=== PATIENT | male | born 1955 | race African-American/Black ===

== ENCOUNTER 2018-05-11 18:54 | Inpatient (IN) | payer MEDICAID, OTHER ==
[~2018-05-11] VITALS: Ht 186.9 cm; Wt 133.8 kg
[~2018-05-11 18:54] MED LIST: ALBUTEROL; MDI; T3
[2018-05-11] MEDS ORDERED: SODIUM CHLORIDE 0.9% 1,000 ML IV ONE ×3 (19:30→20:30)
[2018-05-11] MEDS ORDERED: NALOXONE HCL 0.4 MG/ML 1ML VIAL IV PRN (19:30)
[2018-05-11] MEDS ORDERED: HALOPERIDOL LACTATE 5MG/ML VIAL IM ONE (19:45)
[2018-05-11 19:50] LABS: CHLORIDE 106 mEq/L (98-107)
[2018-05-11 19:51] LABS: HEMATOCRIT. 46.7 % (42.0-52.0); HEMOGLOBIN. 14.9 g/dL (14.0-18.0); MEAN CORPUSCULAR HEMOGLOBIN 31.9 pg (28.0-32.0); MEAN PLATELET VOLUME 9.9 fl (7.4-10.4); PLATELET 262 x1000/uL (130-400); RED BLOOD CELL COUNT 4.67 mill/uL (4.7-6.1); RED CELL DISTRIBUTION WIDTH 14.8 % (11.6-14.6)
[2018-05-11] MEDS ORDERED: LACTATED RINGERS 1,000 ML IV STA (19:56)
[2018-05-11 19:58] LABS: CREATINE KINASE 607 IU/L (39-308); ETHANOL BLOOD < 10 mg/dL
[2018-05-11 20:16] LABS: PLATELET ESTIMATE NORMAL
[2018-05-11] MEDS ORDERED: PROPOFOL 10MG/ML 100ML 100 ML IV STA (20:20)
[2018-05-11] MEDS ORDERED: MIDAZOLAM HCL 50 MG in DEXTROSE 5% WATER 40 ML IV ONE (21:00)
[2018-05-11] MEDS ORDERED: MIDAZOLAM HCL 50 MG in DEXTROSE 5% WATER 40 ML IV NR (21:00)
[2018-05-11] MEDS ORDERED: LORAZEPAM 2MG/ML CPJ IV PRN (21:15)
[2018-05-11] MEDS ORDERED: MAGNESIUM/ALUMINUM HYDROXIDE/SIMETHICONE 30ML UDC PO PRN (21:15)
[2018-05-11] MEDS ORDERED: GUAIFENESIN 200MG/10ML SUGAR FREE UDC PO PRN (21:15)
[2018-05-11] MEDS ORDERED: NITROGLYCERIN 0.4MG TABLET SL SL PRN (21:15)
[2018-05-11] MEDS ORDERED: IPRATROPIUM/ALBUTEROL 0.5-3(2.5)MG/3ML NEB INH PRN (21:15)
[2018-05-11 21:22] LABS: BG BASE EXCESS -6.8 mmol/L (-2.0-2.0); BG CARBOXYHEMOGLOBIN 2.5 % (0.5-1.5); BG DEOXYHEMOGLOBIN 9.2 % (0.0-5.0); BG FRACTION INSPIRED OXYGEN 100; BG HCO3 ACT 19.9 mmol/L (22.0-26.0); BG METHEMOGLOBIN 0.3 % (0.0-1.5); BG OXYGEN SATURATION 90.5 % (92.0-98.5); BG PCO2 44.4 mmHg (35.0-45.0); BG SAMPLE SITE RIGHT RADIAL; BG TIDAL VOLUME(mL) 550 mL; BG TOTAL HEMOGLOBIN 13.8 g/dL (12.0-18.0); BG VENT MODE VENT - A/C; BG VENT RATE 14 set
[2018-05-11 21:48] LABS: CLARITY URINE CLOUDY (CLEAR); COLOR URINE YELLOW (YELLOW); KETONES URINE NEGATIVE (NEGATIVE); LEUKOCYTE ESTERASE URINE TRACE (NEGATIVE); NITRITE URINE NEGATIVE (NEGATIVE); OCCULT BLOOD URINE 1+ (NEGATIVE); PROTEIN URINE NEGATIVE (NEGATIVE); SPECIFIC GRAVITY URINE 1.014 (1.005-1.030)
[2018-05-11 21:59] LABS: *AMPHETAMINES SCREEN URINE NEGATIVE (NEGATIVE); *BARBITURATES SCREEN URINE NEGATIVE (NEGATIVE); *BENZODIAZEPINES SCREEN URINE NEGATIVE (NEGATIVE)
[2018-05-11] MEDS ORDERED: NOREPINEPHRINE 4 MG in DEXT 5% WATER 246 ML IV ONE ×3 (22:00→23:15)
[2018-05-11 22:01] LABS: *COCAINE SCREEN URINE NEGATIVE (NEGATIVE); CANNABINOID URINE SCREEN NEGATIVE (NEGATIVE); METHADONE URINE SCREEN NEGATIVE (NEGATIVE); OPIATES URINE SCREEN NEGATIVE (NEGATIVE); PHENCYCLIDINE URINE SCREEN PRESUMTIVE POSITIVE (NEGATIVE)
[2018-05-11] MEDS ORDERED: PIPERACILLIN/TAZ 3.375G PREMIX 50 ML IV SCH (22:15)
[2018-05-11 23:06] LABS: BG BASE EXCESS -5.7 mmol/L (-2.0-2.0); BG CARBOXYHEMOGLOBIN 1.7 % (0.5-1.5); BG DEOXYHEMOGLOBIN 10.6 % (0.0-5.0); BG FRACTION INSPIRED OXYGEN 100; BG HCO3 ACT 26.9 mmol/L (22.0-26.0); BG METHEMOGLOBIN 0.3 % (0.0-1.5); BG OXYGEN SATURATION 89.2 % (92.0-98.5); BG OXYHEMOGLOBIN 87.4 % (94.0-97.0); BG PCO2 92.3 mmHg (35.0-45.0); BG PH 7.082 (7.350-7.450); BG PO2 76.3 mmHg (75.0-100.0); BG SAMPLE SITE RIGHT RADIAL; BG TIDAL VOLUME(mL) 550 mL; BG TOTAL HEMOGLOBIN 14.9 g/dL (12.0-18.0); BG VENT MODE VENT - A/C; BG VENT RATE 14 set
[2018-05-11] MEDS ORDERED: MIDAZOLAM HCL 50 MG in DEXTROSE 5% WATER 40 ML IV PRN (23:45)
[2018-05-12] VITALS (92 sets, daily range): BP systolic 77–158; BP diastolic 44–131
[2018-05-12 01:11] LABS: BG BASE EXCESS -7.5 mmol/L (-2.0-2.0); BG DEOXYHEMOGLOBIN 29.4 % (0.0-5.0); BG FRACTION INSPIRED OXYGEN 100; BG METHEMOGLOBIN 0.3 % (0.0-1.5); BG OXYGEN SATURATION 69.9 % (92.0-98.5); BG OXYHEMOGLOBIN 68.3 % (94.0-97.0); BG PCO2 69.7 mmHg (35.0-45.0); BG PH 7.137 (7.350-7.450); BG PO2 45.3 mmHg (75.0-100.0); BG SAMPLE SITE RIGHT RADIAL; BG TIDAL VOLUME(mL) 550 mL; BG TOTAL HEMOGLOBIN 15.2 g/dL (12.0-18.0); BG VENT MODE VENT - A/C; BG VENT RATE 18 set
[2018-05-12] MEDS ORDERED: NOREPINEPHRINE 4 MG in DEXT 5% WATER 246 ML IV PRN (03:00)
[2018-05-12] MEDS ORDERED: SODIUM BICARBONATE 8.4% 1 MEQ/ML 50ML SYR IV NR (03:30)
[2018-05-12] MEDS: DEXT 5%/LACTATED RINGERS 1,000 ML IV SCH ×2 (03:42→18:50)
[2018-05-12] MEDS: IPRATROPIUM/ALBUTEROL 0.5-3(2.5)MG/3ML NEB HHN SCH ×5 (04:09→20:35)
[2018-05-12 04:26] LABS: BG BASE EXCESS -4.1 mmol/L (-2.0-2.0); BG CARBOXYHEMOGLOBIN 1.6 % (0.5-1.5); BG DEOXYHEMOGLOBIN 3.1 % (0.0-5.0); BG FRACTION INSPIRED OXYGEN 100; BG METHEMOGLOBIN 0.5 % (0.0-1.5); BG OXYGEN SATURATION 96.8 % (92.0-98.5); BG OXYHEMOGLOBIN 94.8 % (94.0-97.0); BG PCO2 55.5 mmHg (35.0-45.0); BG PH 7.253 (7.350-7.450); BG PO2 98.2 mmHg (75.0-100.0); BG SAMPLE SITE RIGHT RADIAL; BG TIDAL VOLUME(mL) 550 mL; BG TOTAL HEMOGLOBIN 15.8 g/dL (12.0-18.0); BG VENT MODE VENT - A/C; BG VENT RATE 18 set
[2018-05-12] MEDS: PIPERACILLIN/TAZ 3.375G PREMIX 50 ML IV SCH ×3 (05:21→21:56)
[2018-05-12] MEDS ORDERED: VANCOMYCIN 2,000 MG in DEXT 5% WATER 500 ML IV NR (06:00)
[2018-05-12] MEDS: PANTOPRAZOLE SODIUM 40 MG/VIAL IV SCH (08:58)
[2018-05-12] MEDS: ASPIRIN 325MG EC TABLET PO SCH (08:58)
[2018-05-12] MEDS: ENOXAPARIN 30MG/0.3ML SYR SUBCUT SCH ×2 (08:59→20:41)
[2018-05-12] MEDS ORDERED: NOREPINEPHRINE 16 MG in DEXT 5% WATER 234 ML IV PRN (11:30)
[2018-05-12] MEDS ORDERED: ETOMIDATE 2MG/ML 10ML VIAL IV ONE ×2 (13:27→14:42)
[2018-05-12] MEDS ORDERED: SUCCINYLCHOLINE CHLORIDE 200MG/10ML IV ONE ×2 (13:27→14:42)
[2018-05-12] MEDS: MIDAZOLAM HCL 50 MG in DEXTROSE 5% WATER 40 ML IV PRN ×2 (13:29→23:40)
[2018-05-12] MEDS ORDERED: SODIUM CHLORIDE 0.9% 10ML VIAL ONE (13:35)
[2018-05-12] MEDS ORDERED: VECURONIUM BROMIDE 10 MG/VIAL IV ONE (13:35)
[2018-05-12 18:26] LABS: BG BASE EXCESS -0.9 mmol/L (-2.0-2.0); BG CARBOXYHEMOGLOBIN 0.7 % (0.5-1.5); BG DEOXYHEMOGLOBIN 1.3 % (0.0-5.0); BG HCO3 ACT 24.3 mmol/L (22.0-26.0); BG METHEMOGLOBIN 0.3 % (0.0-1.5); BG OXYGEN SATURATION 98.7 % (92.0-98.5); BG OXYHEMOGLOBIN 97.7 % (94.0-97.0); BG PCO2 42.3 mmHg (35.0-45.0); BG PH 7.377 (7.350-7.450); BG PO2 138.5 mmHg (75.0-100.0); BG SAMPLE SITE RIGHT RADIAL; BG TIDAL VOLUME(mL) 550 mL; BG TOTAL HEMOGLOBIN 14.5 g/dL (12.0-18.0); BG VENT MODE VENT - A/C; BG VENT RATE 18 set
[2018-05-12] MEDS: VANCOMYCIN 1500MG in DEXTROSE 5% WATER 250ML IV SCH (20:41)
[2018-05-13] VITALS (95 sets, daily range): BP systolic 95–126; BP diastolic 35–90
[2018-05-13] MEDS ORDERED: VANCOMYCIN 1250MG in DEXTROSE 5% WATER 250ML IV SCH ×2
[2018-05-13] MEDS: IPRATROPIUM/ALBUTEROL 0.5-3(2.5)MG/3ML NEB HHN SCH ×5 (00:26→20:31)
[2018-05-13] MEDS: PIPERACILLIN/TAZ 3.375G PREMIX 50 ML IV SCH ×3 (06:01→22:00)
[2018-05-13 06:02] LABS: BASOPHILS % 0.3 % (0.0-2.0); CHLORIDE 109 mEq/L (98-107); HEMATOCRIT. 41.1 % (42.0-52.0); HEMOGLOBIN. 13.4 g/dL (14.0-18.0); LYMPHOCYTES % 10.1 % (20.0-50.0); MEAN CORPUSCULAR HEMOGLOBIN 31.4 pg (28.0-32.0); MEAN CORPUSCULAR VOLUME 96.6 fL (80.0-94.0); MEAN PLATELET VOLUME 9.8 fl (7.4-10.4); MONOCYTES % 12.9 % (2.0-8.0); NEUTROPHILS % 76.7 % (40.0-76.0); PLATELET 192 x1000/uL (130-400); RED BLOOD CELL COUNT 4.25 mill/uL (4.7-6.1); RED CELL DISTRIBUTION WIDTH 14.5 % (11.6-14.6)
[2018-05-13 08:09] LABS: BG CARBOXYHEMOGLOBIN 1.3 % (0.5-1.5); BG DEOXYHEMOGLOBIN 5.9 % (0.0-5.0); BG METHEMOGLOBIN 0.5 % (0.0-1.5); BG OXYHEMOGLOBIN 92.3 % (94.0-97.0); BG PCO2 36.5 mmHg (35.0-45.0); BG PH 7.418 (7.350-7.450); BG PO2 64.7 mmHg (75.0-100.0); BG SAMPLE SITE RIGHT RADIAL; BG TIDAL VOLUME(mL) 550 mL; BG TOTAL HEMOGLOBIN 14.1 g/dL (12.0-18.0); BG VENT MODE VENT - A/C; BG VENT RATE 18 set
[2018-05-13] MEDS: ENOXAPARIN 30MG/0.3ML SYR SUBCUT SCH ×2 (08:45→20:28)
[2018-05-13] MEDS: PANTOPRAZOLE SODIUM 40 MG/VIAL IV SCH (08:45)
[2018-05-13] MEDS: ASPIRIN 325MG EC TABLET PO SCH (08:45)
[2018-05-13] MEDS: DEXT 5%/LACTATED RINGERS 1,000 ML IV SCH ×2 (10:32→19:30)
[2018-05-13] MEDS: MIDAZOLAM HCL 50 MG in DEXTROSE 5% WATER 40 ML IV PRN (11:13)
[2018-05-13] MEDS: VANCOMYCIN 1500MG in DEXTROSE 5% WATER 250ML IV SCH (20:28)
[2018-05-13] MEDS: ACETAMINOPHEN 325MG TABLET PO PRN (22:00)
[2018-05-14] VITALS (86 sets, daily range): BP systolic 97–141; BP diastolic 47–83
[2018-05-14] MEDS: IPRATROPIUM/ALBUTEROL 0.5-3(2.5)MG/3ML NEB HHN SCH ×9 (00:17→23:36)
[2018-05-14] MEDS: MIDAZOLAM HCL 50 MG in DEXTROSE 5% WATER 40 ML IV PRN ×2 (01:07→22:29)
[2018-05-14] MEDS: DEXT 5%/LACTATED RINGERS 1,000 ML IV SCH (03:01)
[2018-05-14] MEDS: PIPERACILLIN/TAZ 3.375G PREMIX 50 ML IV SCH (05:11)
[2018-05-14 05:43] LABS: HEMATOCRIT. 39.1 % (42.0-52.0); HEMOGLOBIN. 12.7 g/dL (14.0-18.0); MEAN CORPUSCULAR HEMOGLOBIN 31.5 pg (28.0-32.0); MEAN CORPUSCULAR VOLUME 96.9 fL (80.0-94.0); MEAN PLATELET VOLUME 9.9 fl (7.4-10.4); PLATELET 157 x1000/uL (130-400); RED BLOOD CELL COUNT 4.04 mill/uL (4.7-6.1); RED CELL DISTRIBUTION WIDTH 14.5 % (11.6-14.6)
[2018-05-14 07:39] LABS: PLATELET ESTIMATE NORMAL
[2018-05-14 08:25] LABS: BG BASE EXCESS 2.4 mmol/L (-2.0-2.0); BG CARBOXYHEMOGLOBIN 0.7 % (0.5-1.5); BG DEOXYHEMOGLOBIN 3.3 % (0.0-5.0); BG FRACTION INSPIRED OXYGEN 100; BG HCO3 ACT 27.9 mmol/L (22.0-26.0); BG METHEMOGLOBIN 0.3 % (0.0-1.5); BG OXYGEN SATURATION 96.7 % (92.0-98.5); BG OXYHEMOGLOBIN 95.7 % (94.0-97.0); BG PCO2 47.3 mmHg (35.0-45.0); BG PH 7.389 (7.350-7.450); BG SAMPLE SITE RIGHT RADIAL; BG TIDAL VOLUME(mL) 550 mL; BG TOTAL HEMOGLOBIN 12.3 g/dL (12.0-18.0); BG VENT MODE VENT - A/C; BG VENT RATE 18 set
[2018-05-14] MEDS: PANTOPRAZOLE SODIUM 40 MG/VIAL IV SCH (08:44)
[2018-05-14] MEDS: ACETAMINOPHEN 325MG TABLET PO PRN ×2 (08:44→20:16)
[2018-05-14] MEDS: ENOXAPARIN 30MG/0.3ML SYR SUBCUT SCH ×2 (08:44→20:16)
[2018-05-14] MEDS: ASPIRIN 325MG EC TABLET PO SCH (08:44)
[2018-05-14] MEDS: VANCOMYCIN 1,750 MG in DEXT 5% WATER 250 ML IV SCH ×2 (09:51→22:29)
[2018-05-14] MEDS: [UNRECOGNIZED DRUG - REMARK] IV SCH ×4 (12:20)
[2018-05-15] VITALS (78 sets, daily range): BP systolic 102–134; BP diastolic 56–96
[2018-05-15] MEDS: DEXT 5%/LACTATED RINGERS 1,000 ML IV SCH ×2 (01:50→23:58)
[2018-05-15] MEDS: IPRATROPIUM/ALBUTEROL 0.5-3(2.5)MG/3ML NEB HHN SCH ×5 (04:11→20:10)
[2018-05-15] MEDS: ACETAMINOPHEN 325MG TABLET PO PRN ×3 (04:43→20:04)
[2018-05-15 07:29] LABS: BG BASE EXCESS 3.8 mmol/L (-2.0-2.0); BG CARBOXYHEMOGLOBIN 0.5 % (0.5-1.5); BG DEOXYHEMOGLOBIN 0.9 % (0.0-5.0); BG FRACTION INSPIRED OXYGEN 90; BG HCO3 ACT 29.4 mmol/L (22.0-26.0); BG METHEMOGLOBIN 0.2 % (0.0-1.5); BG OXYGEN SATURATION 99.1 % (92.0-98.5); BG OXYHEMOGLOBIN 98.4 % (94.0-97.0); BG PH 7.396 (7.350-7.450); BG PO2 192.8 mmHg (75.0-100.0); BG SAMPLE SITE RIGHT RADIAL; BG TIDAL VOLUME(mL) 550 mL; BG TOTAL HEMOGLOBIN 11.5 g/dL (12.0-18.0); BG VENT MODE VENT - A/C; BG VENT RATE 18 set
[2018-05-15] MEDS: ASPIRIN 325MG EC TABLET PO SCH (09:31)
[2018-05-15] MEDS: VANCOMYCIN 1,750 MG in DEXT 5% WATER 250 ML IV SCH (09:31)
[2018-05-15] MEDS: PANTOPRAZOLE SODIUM 40 MG/VIAL IV SCH (09:31)
[2018-05-15] MEDS: ENOXAPARIN 30MG/0.3ML SYR SUBCUT SCH ×2 (09:31→20:03)
[2018-05-15] MEDS: [UNRECOGNIZED DRUG - REMARK] IV SCH ×4 (09:32)
[2018-05-15 13:14] LABS: HEMOGLOBIN. 10.7 g/dL (14.0-18.0); MEAN CORPUSCULAR HEMOGLOBIN 32.4 pg (28.0-32.0); MEAN PLATELET VOLUME 9.6 fl (7.4-10.4); PLATELET 161 x1000/uL (130-400); RED CELL DISTRIBUTION WIDTH 14.3 % (11.6-14.6)
[2018-05-15] MEDS: ACETYLCYSTEINE 100MG/ML 10% VIAL 4ML INH SCH (13:16)
[2018-05-15 13:49] LABS: CHLORIDE 113 mEq/L (98-107)
[2018-05-15] MEDS: MIDAZOLAM HCL 50 MG in DEXTROSE 5% WATER 40 ML IV PRN ×2 (13:59→19:03)
[2018-05-15 14:39] LABS: PLATELET ESTIMATE NORMAL
[2018-05-16] VITALS (58 sets, daily range): BP systolic 79–137; BP diastolic 55–124
[2018-05-16] MEDS: ACETYLCYSTEINE 100MG/ML 10% VIAL 4ML INH SCH ×4 (00:06→23:50)
[2018-05-16] MEDS: IPRATROPIUM/ALBUTEROL 0.5-3(2.5)MG/3ML NEB HHN SCH ×7 (00:06→23:49)
[2018-05-16] MEDS: ACETAMINOPHEN 325MG TABLET PO PRN ×4 (01:16→20:31)
[2018-05-16] MEDS: MIDAZOLAM HCL 50 MG in DEXTROSE 5% WATER 40 ML IV PRN (04:27)
[2018-05-16] MEDS ORDERED: MORPHINE SULFATE 4 MG/ML CPJ (NOT FOR IM USE) IV NR (07:45)
[2018-05-16] MEDS: ASPIRIN 325MG EC TABLET PO SCH (08:03)
[2018-05-16] MEDS: ENOXAPARIN 30MG/0.3ML SYR SUBCUT SCH ×2 (08:03→20:25)
[2018-05-16] MEDS: PANTOPRAZOLE SODIUM 40 MG/VIAL IV SCH (08:03)
[2018-05-16 08:34] LABS: BG BASE EXCESS 3.4 mmol/L (-2.0-2.0); BG CARBOXYHEMOGLOBIN 1.5 % (0.5-1.5); BG DEOXYHEMOGLOBIN 7.6 % (0.0-5.0); BG FRACTION INSPIRED OXYGEN 40; BG HCO3 ACT 27.9 mmol/L (22.0-26.0); BG METHEMOGLOBIN 0.2 % (0.0-1.5); BG OXYGEN SATURATION 92.3 % (92.0-98.5); BG OXYHEMOGLOBIN 90.7 % (94.0-97.0); BG PCO2 41.9 mmHg (35.0-45.0); BG PH 7.441 (7.350-7.450); BG PO2 58.6 mmHg (75.0-100.0); BG SAMPLE SITE RIGHT RADIAL; BG TIDAL VOLUME(mL) 550 mL; BG TOTAL HEMOGLOBIN 10.9 g/dL (12.0-18.0); BG VENT MODE VENT - A/C; BG VENT RATE 18 set
[2018-05-16] MEDS: [UNRECOGNIZED DRUG - REMARK] IV SCH ×4 (09:14)
[2018-05-16] MEDS: VANCOMYCIN 1,750 MG in DEXT 5% WATER 250 ML IV SCH ×4 (09:15→17:02)
[2018-05-16] MEDS: PIPERACILLIN SODIUM/TAZOBACTAM 4.5 G in DEXT 5% WATER 100 ML IV SCH ×3 (11:47→21:00)
[2018-05-16 12:31] LABS: HEMATOCRIT. 29.5 % (42.0-52.0); HEMOGLOBIN. 9.8 g/dL (14.0-18.0); MEAN CORPUSCULAR HEMOGLOBIN 32.3 pg (28.0-32.0); MEAN CORPUSCULAR VOLUME 97.7 fL (80.0-94.0); MEAN PLATELET VOLUME 9.9 fl (7.4-10.4); PLATELET 178 x1000/uL (130-400); RED BLOOD CELL COUNT 3.02 mill/uL (4.7-6.1); RED CELL DISTRIBUTION WIDTH 14.3 % (11.6-14.6)
[2018-05-16 12:34] LABS: CHLORIDE 113 mEq/L (98-107)
[2018-05-16 13:28] LABS: PLATELET ESTIMATE NORMAL
[2018-05-16] MEDS ORDERED: VANCOMYCIN 1500MG in DEXTROSE 5% WATER 250ML IV SCH (17:00)
[2018-05-16] MEDS: CLOPIDOGREL 75MG TABLET PO SCH (20:24)
[2018-05-17] VITALS (78 sets, daily range): BP systolic 105–153; BP diastolic 51–122
[2018-05-17] MEDS: VANCOMYCIN 1,750 MG in DEXT 5% WATER 250 ML IV SCH ×2 (01:06→09:44)
[2018-05-17] MEDS: DEXT 5%/LACTATED RINGERS 1,000 ML IV SCH ×3 (01:06→23:56)
[2018-05-17] MEDS: PIPERACILLIN SODIUM/TAZOBACTAM 4.5 G in DEXT 5% WATER 100 ML IV SCH ×2 (03:59→10:42)
[2018-05-17] MEDS: IPRATROPIUM/ALBUTEROL 0.5-3(2.5)MG/3ML NEB HHN SCH ×6 (04:12→23:35)
[2018-05-17] MEDS: ACETAMINOPHEN 325MG TABLET PO PRN ×2 (07:04→15:31)
[2018-05-17] MEDS: ACETYLCYSTEINE 100MG/ML 10% VIAL 4ML INH SCH ×3 (08:04→23:35)
[2018-05-17] MEDS: CLOPIDOGREL 75MG TABLET PO SCH (09:45)
[2018-05-17] MEDS: [UNRECOGNIZED DRUG - REMARK] IV SCH ×4 (09:45)
[2018-05-17] MEDS: PANTOPRAZOLE SODIUM 40 MG/VIAL IV SCH (09:45)
[2018-05-17] MEDS: ENOXAPARIN 30MG/0.3ML SYR SUBCUT SCH ×2 (09:47→21:00)
[2018-05-17] MEDS ORDERED: LACTULOSE 20G/30ML UDC PO NR (11:00)
[2018-05-17] MEDS ORDERED: MIDAZOLAM HCL 100 MG in DEXT 5% WATER 80 ML IV PRN (11:30)
[2018-05-17] MEDS: LORAZEPAM 2MG/ML CPJ IV PRN ×2 (11:49→18:55)
[2018-05-17] MEDS: MORPHINE SULFATE 4 MG/ML CPJ (NOT FOR IM USE) IV PRN ×3 (11:50→20:48)
[2018-05-17] MEDS: MEROPENEM 1,000 MG in SODIUM CHLORIDE 0.9% 100 ML IV SCH ×2 (13:15→20:47)
[2018-05-17 18:15] LABS: T4 FREE 0.97 ng/dL (0.76-1.46)
[2018-05-17 18:33] LABS: FOLIC ACID (FOLATE) SERUM 10.6 ng/mL (>5.38)
[2018-05-18] VITALS (28 sets, daily range): BP systolic 106–164; BP diastolic 51–134
[2018-05-18 00:43] LABS: BG BASE EXCESS 4.2 mmol/L (-2.0-2.0); BG CARBOXYHEMOGLOBIN 0.7 % (0.5-1.5); BG DEOXYHEMOGLOBIN 1.8 % (0.0-5.0); BG FRACTION INSPIRED OXYGEN 10037; BG HCO3 ACT 30.2 mmol/L (22.0-26.0); BG METHEMOGLOBIN 0.3 % (0.0-1.5); BG OXYGEN SATURATION 98.2 % (92.0-98.5); BG OXYHEMOGLOBIN 97.2 % (94.0-97.0); BG PCO2 51.9 mmHg (35.0-45.0); BG PH 7.383 (7.350-7.450); BG PO2 119.2 mmHg (75.0-100.0); BG SAMPLE SITE RIGHT FEMORAL; BG VENT MODE MASK - NRB
[2018-05-18] MEDS: MEROPENEM 1,000 MG in SODIUM CHLORIDE 0.9% 100 ML IV SCH ×3 (04:27→20:27)
[2018-05-18] MEDS: DEXT 5%/LACTATED RINGERS 1,000 ML IV SCH ×2 (06:10→20:34)
[2018-05-18 06:23] LABS: HEMATOCRIT. 27.3 % (42.0-52.0); HEMOGLOBIN. 8.8 g/dL (14.0-18.0); MEAN CORPUSCULAR HEMOGLOBIN 31.7 pg (28.0-32.0); MEAN CORPUSCULAR VOLUME 98.5 fL (80.0-94.0); MEAN PLATELET VOLUME 10.1 fl (7.4-10.4); PLATELET 232 x1000/uL (130-400); RED BLOOD CELL COUNT 2.77 mill/uL (4.7-6.1); RED CELL DISTRIBUTION WIDTH 14.6 % (11.6-14.6)
[2018-05-18] MEDS: IPRATROPIUM/ALBUTEROL 0.5-3(2.5)MG/3ML NEB HHN SCH ×4 (08:06→21:02)
[2018-05-18] MEDS: ACETYLCYSTEINE 100MG/ML 10% VIAL 4ML INH SCH ×2 (08:06→15:07)
[2018-05-18 08:20] LABS: ATYPICAL LYMPHOCYTES 1; NUCLEATED RED BLOOD CELLS 1 /100 WBC; PLATELET ESTIMATE NORMAL
[2018-05-18] MEDS: LACTULOSE 20G/30ML UDC PO SCH (08:20)
[2018-05-18 08:29] LABS: BG BASE EXCESS 4.7 mmol/L (-2.0-2.0); BG CARBOXYHEMOGLOBIN 0.4 % (0.5-1.5); BG DEOXYHEMOGLOBIN 2.5 % (0.0-5.0); BG FRACTION INSPIRED OXYGEN 100; BG HCO3 ACT 29.6 mmol/L (22.0-26.0); BG METHEMOGLOBIN 0.4 % (0.0-1.5); BG OXYGEN SATURATION 97.5 % (92.0-98.5); BG OXYHEMOGLOBIN 96.7 % (94.0-97.0); BG PH 7.427 (7.350-7.450); BG PO2 96.5 mmHg (75.0-100.0); BG SAMPLE SITE RIGHT RADIAL; BG TOTAL HEMOGLOBIN 9.6 g/dL (12.0-18.0); BG VENT MODE MASK - NRB
[2018-05-18] MEDS: PANTOPRAZOLE SODIUM 40 MG/VIAL IV SCH (09:00)
[2018-05-18] MEDS: CLOPIDOGREL 75MG TABLET PO SCH (09:00)
[2018-05-18] MEDS: ENOXAPARIN 30MG/0.3ML SYR SUBCUT SCH ×2 (09:00→20:48)
[2018-05-18] MEDS ORDERED: SODIUM CHLORIDE 0.9% 500 ML IV NR (11:45)
[2018-05-18] MEDS ORDERED: VANCOMYCIN 2,000 MG in DEXT 5% WATER 500 ML IV SCH (12:00)
[2018-05-18] MEDS: ONDANSETRON HCL 4MG/2ML INJ IV PRN (20:48)
[2018-05-18] MEDS: LORAZEPAM 2MG/ML CPJ IV PRN (20:48)
[2018-05-19] VITALS (29 sets, daily range): BP systolic 95–144; BP diastolic 20–100
[2018-05-19] MEDS: ACETYLCYSTEINE 100MG/ML 10% VIAL 4ML INH SCH ×3 (01:36→14:44)
[2018-05-19] MEDS: IPRATROPIUM/ALBUTEROL 0.5-3(2.5)MG/3ML NEB HHN SCH ×6 (01:37→20:18)
[2018-05-19] MEDS: MEROPENEM 1,000 MG in SODIUM CHLORIDE 0.9% 100 ML IV SCH ×3 (05:09→20:15)
[2018-05-19] MEDS: ENOXAPARIN 30MG/0.3ML SYR SUBCUT SCH ×2 (09:42→21:24)
[2018-05-19] MEDS: PANTOPRAZOLE SODIUM 40 MG/VIAL IV SCH (09:43)
[2018-05-19] MEDS: CLOPIDOGREL 75MG TABLET PO SCH (09:43)
[2018-05-19] MEDS: LACTULOSE 20G/30ML UDC PO SCH (09:44)
[2018-05-19] MEDS: DEXT 5%/LACTATED RINGERS 1,000 ML IV SCH (09:50)
[2018-05-19] MEDS: ACETAMINOPHEN 325MG TABLET PO PRN (18:02)
[2018-05-19] MEDS: ONDANSETRON HCL 4MG/2ML INJ IV PRN (21:23)
[2018-05-19] MEDS: LORAZEPAM 2MG/ML CPJ IV PRN (21:23)
[2018-05-20] VITALS (19 sets, daily range): BP systolic 80–151; BP diastolic 30–87
[2018-05-20] MEDS: ACETYLCYSTEINE 100MG/ML 10% VIAL 4ML INH SCH ×3 (00:01→15:39)
[2018-05-20] MEDS: IPRATROPIUM/ALBUTEROL 0.5-3(2.5)MG/3ML NEB HHN SCH ×6 (00:01→20:42)
[2018-05-20] MEDS: DEXT 5%/LACTATED RINGERS 1,000 ML IV SCH (00:06)
[2018-05-20] MEDS: MEROPENEM 1,000 MG in SODIUM CHLORIDE 0.9% 100 ML IV SCH ×2 (04:50→12:59)
[2018-05-20] MEDS: CLOPIDOGREL 75MG TABLET PO SCH (08:39)
[2018-05-20] MEDS: PANTOPRAZOLE SODIUM 40 MG/VIAL IV SCH (08:39)
[2018-05-20] MEDS: ENOXAPARIN 30MG/0.3ML SYR SUBCUT SCH ×2 (08:40→20:22)
[2018-05-20] MEDS: LACTULOSE 20G/30ML UDC PO SCH (08:40)
[2018-05-20] MEDS: MORPHINE SULFATE 4 MG/ML CPJ (NOT FOR IM USE) IV PRN ×3 (08:52→22:40)
[2018-05-20] MEDS ORDERED: CEFTRIAXONE 1 G PREMIX 50 ML IV SCH (15:00)
[2018-05-20 15:57] LABS: BASOPHILS % 0.9 % (0.0-2.0); HEMATOCRIT. 26.6 % (42.0-52.0); HEMOGLOBIN. 8.8 g/dL (14.0-18.0); LYMPHOCYTES % 11.9 % (20.0-50.0); MEAN CORPUSCULAR HEMOGLOBIN 32.4 pg (28.0-32.0); MEAN CORPUSCULAR VOLUME 97.8 fL (80.0-94.0); MONOCYTES % 8.2 % (2.0-8.0); PLATELET 348 x1000/uL (130-400); RED BLOOD CELL COUNT 2.72 mill/uL (4.7-6.1); RED CELL DISTRIBUTION WIDTH 14.2 % (11.6-14.6)
[2018-05-20] MEDS: METRONIDAZOLE 500MG TABLET PO SCH ×2 (16:28→22:02)
[2018-05-20] MEDS: LORAZEPAM 2MG/ML CPJ IV PRN (20:22)
[2018-05-21] VITALS (13 sets, daily range): BP systolic 101–152; BP diastolic 41–92
[2018-05-21] MEDS: IPRATROPIUM/ALBUTEROL 0.5-3(2.5)MG/3ML NEB HHN SCH ×6 (00:26→20:15)
[2018-05-21] MEDS: ACETYLCYSTEINE 100MG/ML 10% VIAL 4ML INH SCH ×4 (00:26→16:54)
[2018-05-21] MEDS: METRONIDAZOLE 500MG TABLET PO SCH ×2 (08:54→21:55)
[2018-05-21] MEDS: PANTOPRAZOLE SODIUM 40 MG/VIAL IV SCH (08:54)
[2018-05-21] MEDS: CLOPIDOGREL 75MG TABLET PO SCH (08:54)
[2018-05-21] MEDS: LACTULOSE 20G/30ML UDC PO SCH (08:55)
[2018-05-21] MEDS: MORPHINE SULFATE 4 MG/ML CPJ (NOT FOR IM USE) IV PRN (08:56)
[2018-05-21] MEDS: ENOXAPARIN 30MG/0.3ML SYR SUBCUT SCH ×2 (08:57→21:00)
[2018-05-21] MEDS: CEFTRIAXONE 1 G PREMIX 50 ML IV SCH (14:56)
[2018-05-21 18:56] LABS: BG BASE EXCESS 0.6 mmol/L (-2.0-2.0); BG CARBOXYHEMOGLOBIN 0.3 % (0.5-1.5); BG DEOXYHEMOGLOBIN 9.7 % (0.0-5.0); BG FRACTION INSPIRED OXYGEN 36; BG HCO3 ACT 23.4 mmol/L (22.0-26.0); BG METHEMOGLOBIN 0.3 % (0.0-1.5); BG OXYGEN SATURATION 90.2 % (92.0-98.5); BG OXYHEMOGLOBIN 89.7 % (94.0-97.0); BG PCO2 30.9 mmHg (35.0-45.0); BG PH 7.497 (7.350-7.450); BG PO2 57.4 mmHg (75.0-100.0); BG SAMPLE SITE RIGHT RADIAL; BG TOTAL HEMOGLOBIN 9.4 g/dL (12.0-18.0); BG VENT MODE NASAL CANNULA
[2018-05-22] VITALS (9 sets, daily range): BP systolic 117–151; BP diastolic 56–98
[2018-05-22] MEDS: IPRATROPIUM/ALBUTEROL 0.5-3(2.5)MG/3ML NEB HHN SCH ×6 (04:00→20:00)
[2018-05-22] MEDS: ACETYLCYSTEINE 100MG/ML 10% VIAL 4ML INH SCH ×2 (08:15→16:04)
[2018-05-22] MEDS: CLOPIDOGREL 75MG TABLET PO SCH (08:54)
[2018-05-22] MEDS: ENOXAPARIN 30MG/0.3ML SYR SUBCUT SCH ×2 (08:54→20:42)
[2018-05-22] MEDS: PANTOPRAZOLE SODIUM 40 MG/VIAL IV SCH (08:54)
[2018-05-22] MEDS: LACTULOSE 20G/30ML UDC PO SCH (08:54)
[2018-05-22] MEDS: METRONIDAZOLE 500MG TABLET PO SCH ×2 (08:54→20:39)
[2018-05-22] MEDS: LORAZEPAM 2MG/ML CPJ IV PRN (08:54)
[2018-05-22] MEDS: CEFTRIAXONE 1 G PREMIX 50 ML IV SCH (15:00)
[2018-05-23] MEDS: ACETYLCYSTEINE 100MG/ML 10% VIAL 4ML INH SCH ×3 (00:57→12:02)
[2018-05-23] MEDS: IPRATROPIUM/ALBUTEROL 0.5-3(2.5)MG/3ML NEB HHN SCH ×7 (04:00→22:38)
[2018-05-23] MEDS: ENOXAPARIN 30MG/0.3ML SYR SUBCUT SCH ×2 (09:00→21:00)
[2018-05-23] MEDS: METRONIDAZOLE 500MG TABLET PO SCH ×2 (09:18→20:11)
[2018-05-23] MEDS: CLOPIDOGREL 75MG TABLET PO SCH (09:18)
[2018-05-23] MEDS: LACTULOSE 20G/30ML UDC PO SCH (09:18)
[2018-05-23] MEDS: PANTOPRAZOLE SODIUM 40 MG/VIAL IV SCH (09:18)
[2018-05-23] MEDS: CEFTRIAXONE 1 G PREMIX 50 ML IV SCH (15:07)
[2018-05-23 20:00] VITALS: BP 142/88
[2018-05-24] VITALS (7 sets, daily range): BP systolic 132–173; BP diastolic 83–96
[2018-05-24] MEDS: IPRATROPIUM/ALBUTEROL 0.5-3(2.5)MG/3ML NEB HHN SCH ×3 (04:53→20:00)
[2018-05-24 07:58] LABS: BASOPHILS % 0.7 % (0.0-2.0); EOSINOPHILS % 1.6 % (0.0-5.0); HEMATOCRIT. 27.3 % (42.0-52.0); LYMPHOCYTES % 9.3 % (20.0-50.0); MEAN CORPUSCULAR HEMOGLOBIN 32.4 pg (28.0-32.0); MEAN CORPUSCULAR VOLUME 98.6 fL (80.0-94.0); MEAN PLATELET VOLUME 8.8 fl (7.4-10.4); MONOCYTES % 8.2 % (2.0-8.0); NEUTROPHILS % 80.2 % (40.0-76.0); PLATELET 512 x1000/uL (130-400); RED BLOOD CELL COUNT 2.77 mill/uL (4.7-6.1); RED CELL DISTRIBUTION WIDTH 14.6 % (11.6-14.6)
[2018-05-24] MEDS: PANTOPRAZOLE SODIUM 40 MG/VIAL IV SCH (08:05)
[2018-05-24] MEDS: LACTULOSE 20G/30ML UDC PO SCH (08:06)
[2018-05-24] MEDS: ENOXAPARIN 30MG/0.3ML SYR SUBCUT SCH ×2 (08:06→21:00)
[2018-05-24] MEDS: CLONIDINE 0.1MG TABLET PO PRN (08:12)
[2018-05-24] MEDS: CLOPIDOGREL 75MG TABLET PO SCH (08:12)
[2018-05-24 08:32] LABS: CHLORIDE 110 mEq/L (98-107)
[2018-05-24 08:43] LABS: PHOSPHORUS 3.2 mg/dL (2.5-4.9)
[2018-05-25] VITALS: BP 142/79
[2018-05-25 04:00] VITALS: BP 155/73
[2018-05-25] MEDS: IPRATROPIUM/ALBUTEROL 0.5-3(2.5)MG/3ML NEB HHN SCH ×6 (04:00→20:00)
[2018-05-25] MEDS: LACTULOSE 20G/30ML UDC PO SCH (08:44)
[2018-05-25] MEDS: PANTOPRAZOLE SODIUM 40 MG/VIAL IV SCH (08:44)
[2018-05-25] MEDS: ENOXAPARIN 30MG/0.3ML SYR SUBCUT SCH ×2 (08:44→20:27)
[2018-05-25] MEDS: CLOPIDOGREL 75MG TABLET PO SCH (08:44)
[2018-05-25 12:00] VITALS: BP 169/99
[2018-05-25 16:58] VITALS: BP 144/86
[2018-05-25 20:00] VITALS: BP 154/82
[2018-05-25 23:47] VITALS: BP 138/80
[2018-05-26] MEDS: IPRATROPIUM/ALBUTEROL 0.5-3(2.5)MG/3ML NEB HHN SCH ×5 (03:39→15:24)
[2018-05-26 04:00] VITALS: BP 148/97
[2018-05-26 08:00] VITALS: BP 138/88
[2018-05-26] MEDS: PANTOPRAZOLE SODIUM 40 MG/VIAL IV SCH (09:12)
[2018-05-26] MEDS: LACTULOSE 20G/30ML UDC PO SCH (09:12)
[2018-05-26] MEDS: CLOPIDOGREL 75MG TABLET PO SCH (09:12)
[2018-05-26] MEDS: ENOXAPARIN 30MG/0.3ML SYR SUBCUT SCH ×2 (09:13→20:30)
[2018-05-26 12:00] VITALS: BP 141/84
[2018-05-26] MEDS ORDERED: LISI-186 PO (13:02)
[2018-05-26] MEDS ORDERED: IBUP-2030 PO (13:02)
[2018-05-26] MEDS ORDERED: HYDR25TA PO (13:02)
[2018-05-26] MEDS ORDERED: ALBU18HF2 IH (13:02)
[2018-05-26] MEDS ORDERED: IBUPROFEN 200MG TABLET PO PRN (13:30)
[2018-05-26 16:00] VITALS: BP_SYST 131; BP_SYST 177; BP_DIAS 79; BP_DIAS 89
[2018-05-26] MEDS: CLONIDINE 0.1MG TABLET PO PRN (19:11)
[2018-05-26 20:00] VITALS: BP 135/85
[2018-05-27] VITALS: BP_SYST 157; BP_SYST 163; BP_DIAS 77; BP_DIAS 98
[2018-05-27 04:00] VITALS: BP 149/92
[2018-05-27 08:00] VITALS: BP 146/94
[2018-05-27] MEDS: LACTULOSE 20G/30ML UDC PO SCH (09:00)
[2018-05-27] MEDS: ENOXAPARIN 30MG/0.3ML SYR SUBCUT SCH ×2 (09:00→21:00)
[2018-05-27] MEDS: CLOPIDOGREL 75MG TABLET PO SCH (09:00)
[2018-05-27] MEDS: PANTOPRAZOLE SODIUM 40 MG/VIAL IV SCH (09:00)
[2018-05-27] MEDS: IPRATROPIUM/ALBUTEROL 0.5-3(2.5)MG/3ML NEB HHN SCH ×4 (09:10→16:00)
[2018-05-27 12:00] VITALS: BP 143/89
[2018-05-27 16:00] VITALS: BP 134/79
[2018-05-27 16:23] LABS: BASOPHILS % 0.8 % (0.0-2.0); HEMATOCRIT. 31.2 % (42.0-52.0); HEMOGLOBIN. 10.2 g/dL (14.0-18.0); LYMPHOCYTES % 13.8 % (20.0-50.0); MEAN CORPUSCULAR HEMOGLOBIN 32.4 pg (28.0-32.0); MEAN PLATELET VOLUME 8.5 fl (7.4-10.4); MONOCYTES % 9.2 % (2.0-8.0); NEUTROPHILS % 74.2 % (40.0-76.0); PLATELET 549 x1000/uL (130-400); RED BLOOD CELL COUNT 3.15 mill/uL (4.7-6.1); RED CELL DISTRIBUTION WIDTH 16.6 % (11.6-14.6)
[2018-05-27 16:26] LABS: CHLORIDE 108 mEq/L (98-107)
[2018-05-27 20:00] VITALS: BP 119/86
[2018-05-28] VITALS: BP 160/87
[2018-05-28 04:00] VITALS: BP 131/80
[2018-05-28 08:00] VITALS: BP 163/112
[2018-05-28] MEDS: LACTULOSE 20G/30ML UDC PO SCH (08:26)
[2018-05-28] MEDS: ENOXAPARIN 30MG/0.3ML SYR SUBCUT SCH ×2 (08:26→21:00)
[2018-05-28] MEDS: CLOPIDOGREL 75MG TABLET PO SCH (08:26)
[2018-05-28] MEDS: PANTOPRAZOLE SODIUM 40 MG/VIAL IV SCH (08:51)
[2018-05-28] MEDS: CLONIDINE 0.1MG TABLET PO PRN (08:51)
[2018-05-28 12:00] VITALS: BP 142/94
[2018-05-28] MEDS: IPRATROPIUM/ALBUTEROL 0.5-3(2.5)MG/3ML NEB HHN SCH ×3 (12:25→19:55)
[2018-05-28 16:00] VITALS: BP 131/97
[2018-05-28 20:00] VITALS: BP 121/74
[2018-05-29] VITALS: BP 111/63
[2018-05-29] MEDS: IPRATROPIUM/ALBUTEROL 0.5-3(2.5)MG/3ML NEB HHN SCH ×2 (00:03→03:50)
[2018-05-29 04:00] VITALS: BP 115/71
[2018-05-29 07:48] VITALS: BP 119/80
[2018-05-29] MEDS: CLOPIDOGREL 75MG TABLET PO SCH (08:48)
[2018-05-29] MEDS: ENOXAPARIN 30MG/0.3ML SYR SUBCUT SCH ×2 (08:48→21:00)
[2018-05-29] MEDS: PANTOPRAZOLE SODIUM 40 MG/VIAL IV SCH (08:49)
[2018-05-29] MEDS: LACTULOSE 20G/30ML UDC PO SCH (08:49)
[2018-05-29 11:55] VITALS: BP 122/78
[2018-05-29] MEDS ORDERED: TUBERCULIN,PURIF.PROT.DERIV. 5 TU/0.1 ML SYR ID ONE (15:45)
[2018-05-29 15:56] VITALS: BP 129/81
[2018-05-29 20:00] VITALS: BP 126/75
[2018-05-30] VITALS: BP 109/78
[2018-05-30 04:00] VITALS: BP 138/80
[2018-05-30 08:00] VITALS: BP 170/102
[2018-05-30] MEDS: PANTOPRAZOLE SODIUM 40 MG/VIAL IV SCH (08:17)
[2018-05-30] MEDS: CLONIDINE 0.1MG TABLET PO PRN (08:17)
[2018-05-30] MEDS: ENOXAPARIN 30MG/0.3ML SYR SUBCUT SCH (08:17)
[2018-05-30] MEDS: CLOPIDOGREL 75MG TABLET PO SCH (08:17)
[2018-05-30] MEDS: LACTULOSE 20G/30ML UDC PO SCH (08:17)
[2018-05-30 12:30] VITALS: BP 128/88
[2018-05-30 15:21] VITALS: BP_SYST 128; BP_DIAS 88; BP_DIAS 91
[2018-05-30 16:27] VITALS: BP 128/91
== END 2018-05-30 18:30 | disposition home or self-care (01) | DRG 720 ==
LOC: ER 18:54 → MICUNO 20:30 → ENRESERV 20:44 → 5EST 05-20 14:50 → 8WST 05-24 15:19
PROVIDERS: ADMIT Internal Medicine; ATTEND Internal Medicine
PROC: 5A1955Z Respiratory Ventilation, Greater than 96 Consecutive Hours (ICD-10-PCS; principal; 2018-05-11)
PROC: 0BH17EZ Insertion of Endotracheal Airway into Trachea, Via Natural or Artificial Opening (ICD-10-PCS; 2018-05-11)
PROC: 02HV33Z Insertion of Infusion Device into Superior Vena Cava, Percutaneous Approach (ICD-10-PCS; 2018-05-12)
PROC: 5A09457 Assistance with Respiratory Ventilation, 24-96 Consecutive Hours, Continuous Positive Airway Pressure (ICD-10-PCS; 2018-05-18)
PROC: 5A09357 Assistance with Respiratory Ventilation, Less than 24 Consecutive Hours, Continuous Positive Airway Pressure (ICD-10-PCS; 2018-05-22)
DX: A41.50 Gram-negative sepsis, unspecified (principal); I63.9 Cerebral infarction, unspecified; J96.01 Acute respiratory failure with hypoxia; J69.0 Pneumonitis due to inhalation of food and vomit; G92 Toxic encephalopathy; E87.2 Acidosis; J15.5 Pneumonia due to Escherichia coli; R41.4 Neurologic neglect syndrome; H53.469 Homonymous bilateral field defects, unspecified side; N39.0 Urinary tract infection, site not specified; R65.20 Severe sepsis without septic shock; G81.91 Hemiplegia, unspecified affecting right dominant side; N17.9 Acute kidney failure, unspecified; D64.9 Anemia, unspecified; E11.622 Type 2 diabetes mellitus with other skin ulcer; E44.1 Mild protein-calorie malnutrition; F10.10 Alcohol abuse, uncomplicated; F11.10 Opioid abuse, uncomplicated; F16.10 Hallucinogen abuse, uncomplicated; F17.210 Nicotine dependence, cigarettes, uncomplicated; H54.7 Unspecified visual loss; I10 Essential (primary) hypertension; R47.01 Aphasia; J68.0 Bronchitis and pneumonitis due to chemicals, gases, fumes and vapors; L97.919 Non-pressure chronic ulcer of unspecified part of right lower leg with unspecified severity; T60.1X1A Toxic effect of halogenated insecticides, accidental (unintentional), initial encounter; Y92.89 Other specified places as the place of occurrence of the external cause; Z22.322 Carrier or suspected carrier of Methicillin resistant Staphylococcus aureus; Z82.49 Family history of ischemic heart disease and other diseases of the circulatory system; Z99.11 Dependence on respirator [ventilator] status; Z79.899 Other long term (current) drug therapy; Z68.38 Body mass index [BMI] 38.0-38.9, adult
CPT/HCPCS: 31500; 36415; 36556; 36600; 51702; 70551; 71045; 71250; 80048; 80061; 80202; 80305; 80307; 80329; 82140; 82375; 82550; 82607; 82746; 82805; 83036; 83605; 83735; 84100; 84439; 84443; 84478; 84481; 84484; 87070; 87077; 87186; 90585; 92610; 93005; 93306; 93880; 93970; 94002; 94003; 94640; 94660; 94667; 96360; 97116; 97163; 97167; 97530; 99291; A4216; A6261; C9113; G0482; J0330; J0696; J1630; J1650; J2060; J2185; J2250; J2270; J2310; J2405; J2543; J2704; J3370; J3411; J3490; J7030; J7040; J7050; J7060; J7070; J7120; J7121; J7608; J7620; A4315

== ENCOUNTER 2019-06-09 18:03 | Emergency (ER) | payer MEDICAID ==
[~2019-06-09] VITALS: Ht 175.3 cm; Wt 75.0 kg
[~2019-06-09 18:03] MED LIST changes: +ALBU18HF2 IH; -ALBUTEROL; +HYDR25TA PO; +IBUP-2030 PO; +LISI-186 PO; -MDI; -T3
[2019-06-09 21:23] VITALS: BP 137/74
== END 2019-06-09 21:24 | disposition home or self-care (01) ==
LOC: ER 18:03
DX: S41.112D Laceration without foreign body of left upper arm, subsequent encounter (principal); J45.909 Unspecified asthma, uncomplicated; I10 Essential (primary) hypertension; Z79.899 Other long term (current) drug therapy; X58.XXXD Exposure to other specified factors, subsequent encounter
CPT/HCPCS: 99283

== ENCOUNTER 2019-06-10 20:01 | Emergency (ER) | payer MEDICAID ==
[~2019-06-10] VITALS: Ht 185.4 cm; Wt 118.0 kg
[2019-06-10 20:06] VITALS: BP 134/70
== END 2019-06-10 20:30 | disposition left against medical advice (07) ==
LOC: ER 20:01
DX: Z53.21 Procedure and treatment not carried out due to patient leaving prior to being seen by health care provider (principal)

== ENCOUNTER 2019-06-30 02:39 | Emergency (ER) | payer MEDICAID, MEDICARE ==
[~2019-06-30] VITALS: Ht 195.6 cm; Wt 122.0 kg
[~2019-06-30 02:39] MED LIST changes: +TOPUD PO
[2019-06-30 03:59] LABS: CLARITY URINE CLEAR (CLEAR); COLOR URINE YELLOW (YELLOW); KETONES URINE NEGATIVE (NEGATIVE); LEUKOCYTE ESTERASE URINE NEGATIVE (NEGATIVE); NITRITE URINE NEGATIVE (NEGATIVE); OCCULT BLOOD URINE NEGATIVE (NEGATIVE); PROTEIN URINE NEGATIVE (NEGATIVE); SPECIFIC GRAVITY URINE 1.019 (1.005-1.030)
[2019-06-30 04:00] LABS: BASOPHILS % 1.1 % (0.0-2.0); EOSINOPHILS % 2.1 % (0.0-5.0); HEMATOCRIT. 38.6 % (42.0-52.0); HEMOGLOBIN. 12.7 g/dL (14.0-18.0); LYMPHOCYTES % 24.9 % (20.0-50.0); MEAN CORPUSCULAR HEMOGLOBIN 31.7 pg (28.0-32.0); MEAN CORPUSCULAR VOLUME 96.2 fL (80.0-94.0); NEUTROPHILS % 60.9 % (40.0-76.0); PLATELET 223 x1000/uL (130-400); RED BLOOD CELL COUNT 4.01 mill/uL (4.7-6.1)
[2019-06-30 04:04] LABS: CHLORIDE 111 mEq/L (98-107)
[2019-06-30 04:09] LABS: ETHANOL BLOOD < 10 mg/dL
[2019-06-30 04:10] LABS: METHADONE URINE SCREEN NEGATIVE (NEGATIVE); OPIATES URINE SCREEN NEGATIVE (NEGATIVE); PHENCYCLIDINE URINE SCREEN PRESUMTIVE POSITIVE (NEGATIVE)
[2019-06-30 04:10] LABS: PROTHROMBIN TIME 10.4 sec (9.6-11.0)
[2019-06-30 04:11] LABS: *AMPHETAMINES SCREEN URINE NEGATIVE (NEGATIVE); *BARBITURATES SCREEN URINE NEGATIVE (NEGATIVE); *BENZODIAZEPINES SCREEN URINE NEGATIVE (NEGATIVE); *COCAINE SCREEN URINE NEGATIVE (NEGATIVE); CANNABINOID URINE SCREEN NEGATIVE (NEGATIVE)
[2019-06-30] MEDS ORDERED: LEVOFLOXACIN 750MG PREMIX 150 ML IV ONE (04:15)
[2019-06-30 09:35] VITALS: BP 156/98
[2019-06-30] MEDS ORDERED: SODIUM CHLORIDE 0.9% 1,000 ML IV SCH (11:10)
[2019-06-30] MEDS ORDERED: LORAZEPAM 2MG/ML CPJ IV PRN (11:15)
[2019-06-30] MEDS ORDERED: ONDANSETRON HCL 4MG/2ML INJ IV PRN (11:15)
[2019-06-30] MEDS ORDERED: ENOXAPARIN 40MG/0.4ML SYR SUBCUT SCH (11:15)
[2019-06-30] MEDS ORDERED: CLONIDINE 0.1MG TABLET PO PRN ×2 (11:15)
[2019-06-30] MEDS ORDERED: ACETAMINOPHEN 325MG TABLET PO PRN (11:15)
[2019-06-30] MEDS ORDERED: LEVOFLOXACIN 500MG PREMIX 100 ML IV SCH (11:15)
[2019-06-30] MEDS ORDERED: IPRATROPIUM/ALBUTEROL 0.5-3(2.5)MG/3ML NEB HHN SCH (11:15)
[2019-06-30] MEDS ORDERED: METHYLPREDNISOLONE SOD SUCC 40 MG/ML VIAL IV SCH (12:00)
[2019-07-01] MEDS ORDERED: LISINOPRIL 5MG TABLET PO SCH (09:00)
[2019-07-01] MEDS ORDERED: HYDROCHLOROTHIAZIDE 25MG TABLET PO SCH (09:00)
== END 2019-06-30 11:25 | disposition left against medical advice (07) ==
LOC: ER 02:39 → EDBEDREQTM 04:59 → EDBEDREQ 04:59 → CANBEDREQ 11:22 → ER 11:25
DX: J18.9 Pneumonia, unspecified organism (principal); G93.40 Encephalopathy, unspecified; F16.10 Hallucinogen abuse, uncomplicated; J45.909 Unspecified asthma, uncomplicated; I10 Essential (primary) hypertension; Z86.73 Personal history of transient ischemic attack (TIA), and cerebral infarction without residual deficits; F17.290 Nicotine dependence, other tobacco product, uncomplicated; Z98.890 Other specified postprocedural states; Z79.899 Other long term (current) drug therapy
CPT/HCPCS: 36415; 70450; 71045; 80053; 80305; 80320; 81003; 83880; 84484; 85025; 85610; 87040; 93005; 96365; 96366; 99284; J1956; G0480

== ENCOUNTER 2019-07-08 04:02 | Emergency (ER) | payer MEDICAID ==
[~2019-07-08] VITALS: Ht 182.9 cm; Wt 140.0 kg
[2019-07-08 07:15] VITALS: BP 140/90
== END 2019-07-08 07:20 | disposition home or self-care (01) ==
LOC: ER 04:31
DX: M54.89 Other dorsalgia (principal); I10 Essential (primary) hypertension; Z76.0 Encounter for issue of repeat prescription
CPT/HCPCS: 99283